=== PATIENT | male | born 1965 | race Caucasian/White ===

== ENCOUNTER 2019-04-03 21:03 | Emergency (ER) | payer OTHER ==
[~2019-04-03] VITALS: Ht 175.2 cm; Wt 77.1 kg
[~2019-04-03 21:03] MED LIST: ANAPROX DS550 MG PO; KEFLEX500 MG PO; MEDROL DOSEPAK4 MG PO
[2019-04-04] MEDS ORDERED: CEPHALEXIN500 M1 PO (00:22)
== END 2019-04-04 00:37 | disposition home or self-care (01) ==
LOC: ED 21:03
DX: S61.213A Laceration without foreign body of left middle finger without damage to nail, initial encounter (principal); F17.200 Nicotine dependence, unspecified, uncomplicated; X58.XXXA Exposure to other specified factors, initial encounter; Y93.89 Activity, other specified; Y92.89 Other specified places as the place of occurrence of the external cause; Y99.8 Other external cause status